=== PATIENT | female | born 1965 ===

== ENCOUNTER 2021-06-12 15:38 | Inpatient (IN) | payer OTHER ==
[~2021-06-12] VITALS: Ht 175.3 cm; Wt 75.7 kg
[2021-06-29] MEDS ORDERED: ZIAC 2.5-6.251 EACH PO (10:56)
[2021-07-04] MEDS ORDERED: TYLENOL ARTHRI650 MG PO (07:24)
[2021-07-04] MEDS ORDERED: NEURONTIN300 MG PO (07:24)
[2021-07-04] MEDS ORDERED: ULTRAM50 MG PO (07:24)
[2021-07-04] MEDS ORDERED: MIRALAX17 GM PO (07:24)
== END 2021-07-04 14:36 | disposition home or self-care (01) | DRG 355 ==
LOC: SURH 07-02 07:00 → O/R 07-02 11:15 → SURH 07-02 18:39
PROVIDERS: ADMIT Surgery; ATTEND Surgery
PROC: 0WUF4JZ Supplement Abdominal Wall with Synthetic Substitute, Percutaneous Endoscopic Approach (ICD-10-PCS; principal; 2021-07-02 07:00)
DX: K43.0 Incisional hernia with obstruction, without gangrene (principal); K42.0 Umbilical hernia with obstruction, without gangrene